=== PATIENT | female | born 1935 | race Caucasian/White ===

== ENCOUNTER 2017-08-21 09:46 | Emergency (ER) | payer OTHER ==
[~2017-08-21] VITALS: Ht 162.6 cm; Wt 81.0 kg
[~2017-08-21 09:46] MED LIST: DILT240C7 PO; FLON0.053; GLUCTAB PO; HYDR-3534 PO; LEVO150T7 PO; MECL25 PO; MULT1TAB PO; POLY119S PO; PROT40TA PO; ULTR50TA PO; XANA1TAB6 PO
[2017-08-21 09:49] VITALS: BP 146/92; PULSE 66; RESP 12; TEMP 97.9; O2SAT 98
[2017-08-21] MEDS ORDERED: LEVO150T7 PO (10:05)
[2017-08-21] MEDS ORDERED: METF-382 PO (10:05)
[2017-08-21] MEDS ORDERED: TRAM50TA PO (10:05)
[2017-08-21] MEDS ORDERED: HYDR-4107 PO (10:05)
[2017-08-21] MEDS ORDERED: SIMV40TA PO (10:05)
[2017-08-21] MEDS ORDERED: XANA1TAB2 PO (10:05)
[2017-08-21] MEDS ORDERED: DILT1TAB4 PO (10:05)
[2017-08-21] MEDS ORDERED: PANT40TA3 PO (10:05)
[2017-08-21] MEDS ORDERED: SODIUM CHLOR 0.9% 1000 ML INJ 1,000 ML IV SCH (10:11)
[2017-08-21] MEDS ORDERED: SODIUM CHLORIDE 0.9% FLUSH 10 ML FLUSH IV FLUSH PRN (10:15)
[2017-08-21] MEDS ORDERED: ONDANSETRON HCL 4 MG/2 ML VIAL IVP ONE (10:15)
[2017-08-21] MEDS ORDERED: MORPHINE SULFATE 8 MG/ML INJ IV PUSH ONE (10:15)
--- NOTE | 2017-08-21 10:32 | PD ---
HPI Chief Complaint: Flank/Kidney Pain Time Seen by Provider: 10:11 Travel History International Travel<30 days: No Contact w/Intl Traveler<30days: No Traveled to known affect area: No History of Present Illness HPI This is an 82-year-old female with a history of hypertension, diabetes mellitus , hyperlipidemia, hypothyroidism, presents today with complaints of bilateral flank pain. Patient states that she thinks she has a kidney infection. She states had pain like this in the past and it was secondary to kidney infection. She states she called her physician called in Bactrim DS twice daily 3 days. She denies any fevers, chills. She does report nausea. There is no reported dysuria. The patient also gives history that she fell last week. She states she twisted her back at that time. She states that she gets acupuncture for the back pain however the lay out technician was concerned because of the location of her pain in the fact that she has had kidney infections in the past. There is no diarrhea. There is no vomiting. There are no other complaints at the time of my examination. PFSH Past Medical History Hx Anticoagulant Therapy: No Asthma: Yes Blood Disorders: No Heart Rhythm Problems: No Cancer: Yes (SKIN CANCER TO RIGHT LEG) Cardiovascular Problems: Yes High Cholesterol: Yes Chemotherapy: No Chest Pain: No Congestive Heart Failure: No COPD: No Cerebrovascular Accident: No Diabetes: Yes Patient Takes Glucophage: Yes Diminished Hearing: No Endocrine: Yes Gastrointestinal Disorders: No Genitourinary: No Hypertension: Yes Immune Disorder: No Musculoskeletal: Yes (NERVE SCIATICA) Neurologic: No Psychiatric: No Reproductive: No Respiratory: No Pancreatitis: Yes Sleep Apnea: No Thyroid Disease: Yes Influenza Vaccination: Yes Menopausal: Yes Past Surgical History Cholecystectomy: Yes Hysterectomy: Yes Other Surgery: No (GALLBLADDER,HIA, SKIN CA REMOVED) Social History Alcohol Use: No Tobacco Use: No Substance Use: No Allergies-Medications (Allergen,Severity, Reaction): Coded Allergies: No Known Allergies (Unverified Adverse Reaction, Unknown, 08/21/17) Reported Meds & Prescriptions Reported Meds & Active Scripts Active Skelaxin (Metaxalone) 800 Mg Tablet 800 Mg PO TID 4 Days Lorcet (Hydrocodone-Acetaminophen) 5-325 mg Tab 1 Tab PO Q6H PRN 4 Days Reported Simvastatin 40 Mg Tab 40 Mg PO HS Tramadol (Tramadol HCl) 50 Mg Tab 50 Mg PO DAILY PRN Pantoprazole (Pantoprazole Sodium) 40 Mg Tab 40 Mg PO DAILY Hydrocodone-Acetaminophen 5-300 Mg Tab 1 Tab PO Q6H PRN Levothyroxine (Levothyroxine Sodium) 150 Mcg Tab 150 Mcg PO DAILY Metformin ER (Metformin HCl) 1,000 Mg Noe 1,000 Mg PO DAILY With evening meal Diltiazem ER 24 HR 240 Mg Noe 240 Mg PO DAILY Xanax (Alprazolam) 1 Mg Tab 1 Mg PO BID PRN Review of Systems Except as stated in HPI: all other systems reviewed are Neg General / Constitutional: No: Fever, Chills HENT: No: Headaches, Lightheadedness, Neck Pain Cardiovascular: No: Chest Pain or Discomfort, Palpitations Respiratory: No: Cough, Shortness of Breath Gastrointestinal: Positive: Nausea, Vomiting, Abdominal Pain, No: Diarrhea Genitourinary: No: Frequency, Dysuria Musculoskeletal: Positive: Pain, No: Weakness (Bilateral flank, left greater than right) Skin: No Rash, No Lesions Neurologic: No: Weakness, Incontinence, Sensory Disturbance Physical Exam Narrative GENERAL: Well-developed well-nourished female in mild to moderate discomfort. SKIN: Focused skin assessment warm/dry. HEAD: Atraumatic. Normocephalic. EYES: No scleral icterus. No injection or drainage. ENT: No nasal bleeding or discharge. Mucous membranes pink and moist. NECK: Trachea midline. Supple. CARDIOVASCULAR: Regular rate and rhythm. No murmur appreciated. RESPIRATORY: No accessory muscle use. Clear to auscultation. Breath sounds equal bilaterally. GASTROINTESTINAL: Abdomen soft, nondistended. Patient has tenderness to palpation in her bilateral lower quadrant segments. No suprapubic tenderness on exam. No rebound. MUSCULOSKELETAL: No obvious deformities. No clubbing. No cyanosis. No edema. Subjective discomfort to CVA percussion NEUROLOGICAL: Awake and alert. No obvious cranial nerve deficits. Motor grossly within normal limits. Normal speech. PSYCHIATRIC: Appropriate mood and affect; insight and judgment normal. Data Data Last Documented VS Vital Signs Date Time Temp Pulse Resp B/P (MAP) Pulse Ox O2 Delivery O2 Flow Rate FiO2 08/21/17 11:55 74 17 97/53 (68) 98 Room Air 08/21/17 09:49 97.9 Orders Orders Complete Blood Count With Diff (08/21/17 10:11) Comprehensive Metabolic Panel (08/21/17 10:11) Lipase (08/21/17 10:11) Urinalysis - C+S If Indicated (08/21/17 10:11) Iv Access Insert/Monitor (08/21/17 10:11) Ecg Monitoring (08/21/17 10:11) Oximetry (08/21/17 10:11) Ondansetron Inj (Zofran Inj) (08/21/17 10:15) Sodium Chlor 0.9% 1000 Ml Inj (Ns 1000 M (08/21/17 10:11) Sodium Chloride 0.9% Flush (Ns Flush) (08/21/17 10:15) Morphine Inj (Morphine Inj) (08/21/17 10:15) Ct Abd/Pel W Iv Contrast(Rout) (08/21/17 11:11) Oral Contrast - Adult (08/21/17 11:21) Diatrizoate Liq ( Gastroview Liq) (08/21/17 11:51) Ct Lumb Spine W Iv Contrast (08/21/17 11:11) Iohexol 350 Inj (Omnipaque 350 Inj) (08/21/17 13:39) Labs Laboratory Tests Test 08/21/17 10:20 08/21/17 10:25 White Blood Count 6.0 TH/MM3 Red Blood Count 3.70 MIL/MM3 Hemoglobin 12.1 GM/DL Hematocrit 35.9 % Mean Corpuscular Volume 97.0 FL Mean Corpuscular Hemoglobin 32.6 PG Mean Corpuscular Hemoglobin Concent 33.6 % Red Cell Distribution Width 14.5 % Platelet Count 311 TH/MM3 Mean Platelet Volume 8.8 FL Neutrophils (%) (Auto) 43.1 % Lymphocytes (%) (Auto) 39.8 % Monocytes (%) (Auto) 8.7 % Eosinophils (%) (Auto) 7.6 % Basophils (%) (Auto) 0.8 % Neutrophils # (Auto) 2.6 TH/MM3 Lymphocytes # (Auto) 2.4 TH/MM3 Monocytes # (Auto) 0.5 TH/MM3 Eosinophils # (Auto) 0.5 TH/MM3 Basophils # (Auto) 0.1 TH/MM3 CBC Comment DIFF FINAL Differential Comment Blood Urea Nitrogen 16 MG/DL Creatinine 0.84 MG/DL Random Glucose 104 MG/DL Total Protein 7.6 GM/DL Albumin 3.6 GM/DL Calcium Level 9.2 MG/DL Alkaline Phosphatase 75 U/L Aspartate Amino Transf (AST/SGOT) 23 U/L Alanine Aminotransferase (ALT/SGPT) 15 U/L Total Bilirubin 0.4 MG/DL Sodium Level 138 MEQ/L Potassium Level 4.9 MEQ/L Chloride Level 106 MEQ/L Carbon Dioxide Level 25.8 MEQ/L Anion Gap 6 MEQ/L Estimat Glomerular Filtration Rate 65 ML/MIN Lipase 72 U/L Urine Color YELLOW Urine Turbidity CLEAR Urine pH 5.5 Urine Specific [place] 1.022 Urine Protein NEG mg/dL Urine Glucose (UA) NEG mg/dL Urine Ketones NEG mg/dL Urine Occult Blood NEG Urine Nitrite NEG Urine Bilirubin NEG Urine Urobilinogen 2.0 MG/DL Urine Leukocyte Esterase NEG Urine RBC LESS THAN 1 /hpf Urine WBC LESS THAN 1 /hpf Urine Squamous Epithelial Cells <1 /hpf Urine Hyaline Casts 15 /lpf Urine Mucus FEW /lpf Microscopic Urinalysis Comment CATH-CULT NOT IND MDM Medical Decision Making Medical Screen Exam Complete: Yes Emergency Medical Condition: Yes Differential Diagnosis Pyelonephritis versus musculoskeletal pain versus diverticulitis. Narrative Course [id number] female with history of chronic back pain, presents today with complaints of flank pain bilaterally. Patient thought she had a UTI. She called her physician and had them call in antibiotics. There is no evidence of UTI on exam. CT abdomen pelvis was ordered to rule out acute intra-abdominal abnormality. There is no acute abnormalities. CT lumbar spine showed T11-T12 anterior compression fracture that looks old on CT. There is degenerative disc and joint disease. I discussed the findings with the patient and told her this is likely arthritic in nature. She has been informed that she should use a walker. She states she does not have a walker at home however is willing to accept a prescription for 1. She will be placed on Skelaxin 3 times daily for 4 days and lower set 11/02/2024 6 hours for 4 days. She has been instructed not to take the tramadol while taking this medication. Diagnosis Primary Impression: Low back pain Additional Impression: T11 and T12 mild compression fractures which appear to be old. Additional Instructions: Do not take tramadol or other sedating medications while taking the Lorcet. Moist heat 4 times daily. Recommend using walker. Follow-up with your primary care physician. Med/Other Pt SpecificInfo: Prescription(s) given Scripts Metaxalone (Skelaxin) 800 Mg Tablet 800 MG PO TID for 4 Days, #12 Prov: Rex Barnett MD 08/21/17 Hydrocodone-Acetaminophen (Lorcet) 5-325 mg Tab 1 TAB PO Q6H Y for PAIN for 4 Days, #16 TAB 0 Refills Prov: Rex Barnett MD 08/21/17 Disposition: 01 DISCHARGE HOME Condition: Stable Rex Barnett MD Aug 21, 2017 10:32
[2017-08-21 10:40] LABS: AUTOMATED NEUTROPHIL # 2.6 TH/MM3 (1.8-7.7); BASOPHIL # 0.1 TH/MM3 (0-0.2); BASOPHIL % 0.8 % (0.0-2.0); EOSINOPHIL # 0.5 TH/MM3 (0-0.4); EOSINOPHIL % 7.6 % (0.0-4.0); HEMATOCRIT 35.9 % (35.0-46.0); HEMOGLOBIN 12.1 GM/DL (11.6-15.3); LYMPH % 39.8 % (9.0-44.0); LYMPHOCYTE # 2.4 TH/MM3 (1.0-4.8); MEAN CORPUSCULAR HEMOGLOBIN 32.6 PG (27.0-34.0); MEAN CORPUSCULAR HGB CONC 33.6 % (32.0-36.0); MEAN PLATELET VOLUME 8.8 FL (7.0-11.0); MONO % 8.7 % (0.0-8.0); MONOCYTE # 0.5 TH/MM3 (0-0.9); NEUT % 43.1 % (16.0-70.0); PLATELET COUNT 311 TH/MM3 (150-450); RED CELL DISTRIBUTION WIDTH 14.5 % (11.6-17.2)
[2017-08-21 10:45] VITALS: BP 117/52; PULSE 64; RESP 17; O2SAT 96
[2017-08-21 10:57] LABS: ALBUMIN 3.6 GM/DL (3.4-5.0); ALT (GPT) 15 U/L (10-53); AST (GOT) 23 U/L (15-37); BICARBONATE 25.8 MEQ/L (21.0-32.0); CALCIUM 9.2 MG/DL (8.5-10.1); CHLORIDE 106 MEQ/L (98-107); CREATININE 0.84 MG/DL (0.50-1.00); GLOMERULAR FILTRATION RATE 65 ML/MIN (>89); GLUCOSE,RANDOM 104 MG/DL (74-106); SODIUM (NA) 138 MEQ/L (136-145)
[2017-08-21 10:57] LABS: BILIRUBIN, URINE NEG (NEG); BLOOD, URINE NEG (NEG); GLUCOSE,URINE NEG (NEG); HYALINE CAST, URINE 15 /lpf (RARE); KETONE, URINE NEG (NEG); MUCUS URINE FEW /lpf (OCC); NITRITE,URINE NEG (NEG); PH, URINE 5.5 (5.0-8.5); SQUAMOUS EPITHELIAL CELL URINE <1 /hpf (0-5); URINE COLOR YELLOW (YELLW/STRAW); URINE LEUKOCYTE ESTERASE NEG (NEG)
[2017-08-21 11:00] LABS: ALKALINE PHOSPHATASE 75 U/L (45-117); BLOOD UREA NITROGEN 16 MG/DL (7-18); TOTAL BILIRUBIN ADULT 0.4 MG/DL (0.2-1.0); TOTAL PROTEIN 7.6 GM/DL (6.4-8.2)
[2017-08-21] MEDS ORDERED: DIATRIZOATE MEGLUM/DIATRIZOATE SOD 9 ML CUP ONE (11:51)
[2017-08-21 11:55] VITALS: BP 97/53; PULSE 74; RESP 17; O2SAT 98
[2017-08-21] MEDS ORDERED: IOHEXOL 350 MG/ML 10 ML VIAL (for RAD DIAG) IVCONTRAST ONE (13:39)
--- NOTE | 2017-08-21 14:06 | RADRPT ---
EXAM DATE/TIME: 08/21/2017 13:29 [facility] COMPARISON: CT ABDOMEN & PELVIS W CONTRAST, September 16, 2015, 17:37. INDICATIONS : Bilateral flank pain IV CONTRAST: 91 cc Omnipaque 350 (iohexol) IV ORAL CONTRAST: Prescribed oral contrast ingested. RADIATION DOSE: 11.9 CTDIvol (mGy) MEDICAL HISTORY : Hypertension. Pancreatitis. Skin cancer, asthma, diabetes SURGICAL HISTORY : Cholecystectomy. Hysterectomy. ENCOUNTER: Initial ACUITY: 2 weeks PAIN SCALE: 8/10 LOCATION: Bilateral lower quadrant TECHNIQUE: Volumetric scanning of the abdomen and pelvis was performed. Using automated exposure control and ad justment of the mA and/or kV according to patient size, radiation dose was kept as low as reasonably achievable to obtain optimal diagnostic quality images. DICOM format image data is available electro nically for review and comparison. FINDINGS: LOWER LUNGS: The visualized lower lungs are clear. LIVER: Homogeneous density. Stable low density lesions scattered throughout the liver consistent with cysts. The largest involves segment 8 near its junction with segment 7. It measures 1.7 cm in diameter. No dilatation the intrahepatic biliary system. The common bile that measures 17 mm in diameter which is slightly larger than the prior exam. No obstructing stone or lesion appreciated.. Gallbladder surgica lly absent. SPLEEN: Normal size without lesion. PANCREAS: Within normal limits. KIDNEYS: Normal in size and shape. There is no mass, stone or hydronephrosis. ADRENAL GLANDS: Within normal limits. VASCULAR: There is no aortic aneurysm. BOWEL/MESENTERY: The stomach, small bowel, and colon demonstrate no acute abnormality. There is no free intraperitone al air or fluid. ABDOMINAL WALL: Within normal limits. RETROPERITONEUM: There is no lymphadenopathy. BLADDER: No wall thickening or mass. REPRODUCTIVE: Within normal limits. INGUINAL: There is no lymphadenopathy or hernia. MUSCULOSKELETAL: A degenerative and scoliotic spine. CONCLUSION: 1. No acute abnormality to explain the patient's pain. 2. Prior cholecystectomy. 3. Mild prominence of the common bile duct likely a capacitance effect from a prior cholecystectomy. I see no obstructing mass or stone. 4. Stable hepatic cysts. Roderick Miguel Jr., MD on August 21, 2017 at 13:56 Board Certified Radiologist. This report was verified electronically.
--- NOTE | 2017-08-21 14:23 | RADRPT ---
EXAM DATE/TIME: 08/21/2017 13:29 [facility] COMPARISON: No previous studies available for comparison. INDICATIONS : Lower back pain IV CONTRAST: 75 cc Omnipaque 350 (iohexol) IV ; Cumulative dose for multiple exams. RADIATION DOSE: ; Reconstructed from previous dataset, no dose MEDICAL HISTORY : Hypertension. Pancreatitis. Skin cancer, asthma, diabetes SURGICAL HISTORY : Hysterectomy. Cholecystectomy. ENCOUNTER: Initial ACUITY: 2 weeks PAIN SCALE: 8/10 LOCATION: Bilateral lower quadrant TECHNIQUE: Volumetric scanning of the lumbar spine was performed. Multiplanar reconstructions in the sagittal, coronal and oblique axial planes were performed. Using automated exposure control and adjustment of the mA and/or kV according to patient size, radiation dose was kept as low as reasonably achievable t o obtain optimal diagnostic quality images. DICOM format image data is available electronically for review and comparison. FINDINGS: CONUS MEDULLARIS: Normal. PARASPINAL SOFT TISSUES: Normal. LUMBAR CORD: Normal. DURAL SAC: Normal. Wedge-shaped compression fractures are seen involving the superior endplates of T11 and T12. Loss of height is approximately 20% at T11 and 40% at T12. No cortical or trabecular irregularity. No retropu lsion. The remaining vertebral body heights are maintained. Mild retrolisthesis of L1 on L2 and L2 on L3. L3-L4: Vacuum disc phenomena with disc space narrowing and mild broad-based disc osteophyte complex. Moderat e ligamenta flava hypertrophy and mild bony hypertrophy of the facets with narrowing of the left late ral recess. Right lateral recess is patent. Narrowing of the neural foramina bilaterally more pronoun becca on the right. L5-S1: The disc, uncovertebral joints, central canal, foramina, and facets are normal. CONCLUSION: 1. Age-indeterminate compression fractures involving T11 and T12. The CT characteristics are more sug gestive of chronic fractures. 2. Diffuse degenerative changes as detailed above. Roderick Miguel Jr., MD on August 21, 2017 at 14:12 Board Certified Radiologist. This report was verified electronically.
[2017-08-21] MEDS ORDERED: HYDR-3576 PO (14:31)
[2017-08-21] MEDS ORDERED: META800 PO (14:31)
[2017-08-21] MEDS ORDERED: ROLLER WALKER1 MI1 (14:37)
[2017-08-21 14:40] VITALS: BP 123/54; PULSE 64; RESP 16; O2SAT 98
== END 2017-08-21 15:17 | disposition home or self-care (01) ==
LOC: NEPC 09:46
DX: M54.5 Low back pain (principal); S22.080A Wedge compression fracture of T11-T12 vertebra, initial encounter for closed fracture; I10 Essential (primary) hypertension; E78.00 Pure hypercholesterolemia, unspecified; E03.9 Hypothyroidism, unspecified; E11.9 Type 2 diabetes mellitus without complications; J45.909 Unspecified asthma, uncomplicated; W19.XXXA Unspecified fall, initial encounter; Z85.828 Personal history of other malignant neoplasm of skin; Z79.84 Long term (current) use of oral hypoglycemic drugs; Z79.899 Other long term (current) drug therapy
CPT/HCPCS: 72132; 74177; 80053; 81001; 83690; 85025; 96361; 96374; 96375; 99284; J2270; J2405; J7030; Q9963; Q9967